=== PATIENT | male | born 1960 | race Caucasian/White ===

== ENCOUNTER 2022-01-10 23:18 | Inpatient (IN) | payer OTHER ==
[~2022-01-10] VITALS: Ht 175.3 cm; Wt 56.8 kg
[2022-01-10 23:35] LABS: BASOPHIL 0.8 % (0-2); EOSINOPHIL 0.4 % (0-5); HCT 35.6 % (42.0-52.0); HGB 12.1 g/dl (13.2-18.0); LYMPHOCYTE 10.9 % (15-48); MCV 94.2 fL (78.0-100.0); MONOCYTE 9.6 % (0-12); MPV 9.4 fL (6.0-9.5); NRBC 0; PLT 440 K/uL (150-400); RBC 3.78 M/uL (4.70-6.00); RDW 12.9 % (11.5-14.0); WBC 9.2 K/uL (4.0-10.5)
[2022-01-11] LABS: ALBUMIN 3.3 g/dL (3.4-5.0); ALKALINE PHOSHATASE 117 U/L (46-116); ALT 19 U/L (16-63); AST 33 U/L (15-37); BILIRUBIN - TOTAL 0.6 mg/dL (0.2-1.0); BUN 14 mg/dL (7-18); BUN/CREAT RATIO (CALC) 14.4 RATIO; CHLORIDE 104 mmol/L (98-107); CO2 (BICARBONATE) 22 mmol/L (21-32); CREATININE 0.97 mg/dL (0.67-1.17); GLOBULIN (CALCULATION) 3.8 g/dL; GLUCOSE 93 mg/dL (74-106); POTASSIUM 3.3 mmol/L (3.5-5.1); TOTAL PROTEIN 7.1 g/dL (6.4-8.2)
[2022-01-11 00:02] LABS: ACETAMINOPHEN (TYLENOL) < 2.0 ug/mL (10.0-30.0)
[2022-01-11 02:04] LABS: BILIRUBIN NEGATIVE (NEGATIVE); BLOOD NEGATIVE Ery/uL (NEGATIVE); CLARITY CLEAR (CLEAR); COLOR YELLOW (YELLOW); GLUCOSE (U) NORMAL (NORMAL); LEUKOCYTES NEGATIVE Leu/uL (NEGATIVE); NITRITE NEGATIVE (NEGATIVE); PROTEIN NEGATIVE (NEGATIVE); SPECIFIC GRAVITY 1.015 (1.001-1.030)
[2022-01-11 02:07] LABS: AMPHETAMINES NEGATIVE (NEGATIVE); BARBITURATES NEGATIVE (NEGATIVE); ECSTASY (MDMA) NEGATIVE (NEGATIVE); MARIJUANA (THC) NEGATIVE (NEGATIVE); METHADONE NEGATIVE (NEGATIVE); OPIATES NEGATIVE (NEGATIVE); OXYCODONE NEGATIVE (NEGATIVE)
[2022-01-11 02:11] LABS: SQUAMOUS EPITHELIAL CELLS RARE
[2022-01-11 02:42] LABS: CORONAVIRUS 2019 SARS-COV-2 NEGATIVE (NEGATIVE); INFLUENZA A NAA NEGATIVE (NEGATIVE)
--- NOTE | 2022-01-11 04:47 | NUR ---
PATIENT ARRIVED TO FLOOR VIA STRECHER, ALERT TO SELF ONLY UNABLE TO OBTAIN MOST INFO. TRIED TO CONTACT SISTER BUT NO ANSWER. BED LOCKED IN LOW POSITION CALL LIGHT IN REACH. BED ALERT ON.
[2022-01-11 06:52] LABS: RETICULOCYTE COUNT 1.3 % (1.0-2.0)
[2022-01-11 07:14] LABS: IRON % SATURATION 10.8 %SAT (20-50)
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
[2022-01-12 07:09] LABS: HCT 32.1 % (42.0-52.0); HGB 10.8 g/dl (13.2-18.0); MCH 32.2 pg (25.0-31.0); MCHC 33.6 g/dL (32.0-36.0); MCV 95.8 fL (78.0-100.0); MPV 9.8 fL (6.0-9.5); RBC 3.35 M/uL (4.70-6.00); WBC 6.2 K/uL (4.0-10.5)
[2022-01-12 07:37] LABS: BUN/CREAT RATIO (CALC) 17.3 RATIO; CREATININE 0.75 mg/dL (0.67-1.17); POTASSIUM 3.6 mmol/L (3.5-5.1)
--- NOTE | 2022-01-12 13:27 | NUR ---
PT REQUESTED INPT THERAPY WITH A [place] [facility]. CALLED [place] AND SPOKE WITH ASIM. SHE WILL HAVE SOMEONE TO CALL BACK
--- NOTE | 2022-01-12 13:37 | NUR ---
PT LIVES WITH SISTER AND DAUGHTER. PT SAYS HE NEEDS A WALKER AT HOME RE[facility]APY WITH [facility] IF UNABLE TO GET THAT WOULD LIKE TO HAVE THERAPY OUPT WITH [facility]. DOES NOT WANT WAITING FOR CALL BACK FROM ME
--- NOTE | 2022-01-12 15:08 | NUR ---
JOSUE FROM [place] CALLED THEY DO NOT HAVE INPT ACUTE REHAB.
--- NOTE | 2022-01-12 15:09 | NUR ---
CALLED [facility] PT HAS APPOINTMENT TuesdayJanuary AT 11PM THEY WILL CALL WITH [facility] IF THERE IS A CANCELLATION
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
--- NOTE | 2022-01-12 15:36 | NUR ---
IF NEED TO CONTACT [place] ACTIVE DIRECTORY ADMINISTRATOR [phone]
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
--- NOTE | 2022-01-13 12:01 | NUR ---
RADIOGRAPHER, LUCHO, ON-SITE TODAY, REPORTED CONCERNS AND SITUATION TO HER, SHE STATED THAT IF THE PATIENT IS ALERT AND ORIENTED AND DENIES MAKING ANY HOMICIDIAL THREATS HE HAS THE RIGHT TO REFUSE THE OLAP CONSULT. I SPOKE WITH THE PATIENT AND HE DENIED THE NEED FOR THE OLAP CONSULT AT THIS TIME. PATIENT AA&OX4 AT THIS TIME. PATIENTS PRIMARY MD NOTIFIED.
--- NOTE | 2022-01-13 17:26 | NUR ---
DR CHANDLER NOTIFIED BY CAMILA MANCINI THIS AM ABOUT CONSULT SHORTLY AFTER 7AM. CALL TO DR CHANDLER AT 1400 FOR UPDATE ON REFERRAL, HE LOOKED AT SCANS AND STATED THAT THE PATIENT WOULD NEED TO BE TRANSFERRED TO [facility]TH[facility] DOCTOR FOR SURGERY ON HIS PELVIS. DR ROBLEDO INFORMED, [facility] CONTACTED WHO SPOKE WITH DR ROBLEDO AND ACCEPTED PATIENT. WE ARE WAITING ON A BED TO TRANSFER PATIENT. PATIENT'S SISTER ARNAV HERE AND PER PATIENT'S REQUEST WAS UPDATED ON HIS CONDITION AND PATIENT REQUESTED HIS FRONT SHEET BE CHANGED TO REMOVE SISTER ON THERE AND ADD ARNAV. THIS WAS DONE
== END 2022-01-13 20:56 | disposition other institution (70) | DRG 91 ==
LOC: FER 23:18 → FMS 01-11 03:27
PROVIDERS: Emergency Medicine; Nurse Practitioner Acute Care; ADMIT Allergy & Immunology Allergy
PROC: HZ2ZZZZ Detoxification Services for Substance Abuse Treatment (ICD-10-PCS; principal; 2022-01-11)
DX: G92.8 Other toxic encephalopathy (principal); I63.81 Other cerebral infarction due to occlusion or stenosis of small artery; S32.19XA Other fracture of sacrum, initial encounter for closed fracture; S52.571A Other intraarticular fracture of lower end of right radius, initial encounter for closed fracture; S32.810A Multiple fractures of pelvis with stable disruption of pelvic ring, initial encounter for closed fracture; Z68.1 Body mass index [BMI] 19.9 or less, adult; N17.9 Acute kidney failure, unspecified; M50.30 Other cervical disc degeneration, unspecified cervical region; Z20.822 Contact with and (suspected) exposure to COVID-19; G80.9 Cerebral palsy, unspecified; F43.10 Post-traumatic stress disorder, unspecified; E87.6 Hypokalemia; D64.9 Anemia, unspecified; R63.6 Underweight; I12.9 Hypertensive chronic kidney disease with stage 1 through stage 4 chronic kidney disease, or unspecified chronic kidney disease; N18.2 Chronic kidney disease, stage 2 (mild); V58.9XXA Unspecified occupant of pick-up truck or van injured in noncollision transport accident in traffic accident, initial encounter; Z87.891 Personal history of nicotine dependence; Z98.890 Other specified postprocedural states; Z80.9 Family history of malignant neoplasm, unspecified; Z86.73 Personal history of transient ischemic attack (TIA), and cerebral infarction without residual deficits
CPT/HCPCS: 36415; 70450; 70551; 71045; 71250; 72125; 73100; 73522; 80048; 80053; 80305; 81001; 82140; 82607; 82728; 83540; 83550; 84443; 84484; 85025; 86140; 96372; 97166; G0480; J1630; J1650; J3411; J3475; J3486; J7030; J7120; U0002

== ENCOUNTER 2022-01-15 23:01 | Emergency (ER) | payer OTHER | END 2022-01-16 21:32 | disposition home or self-care (01) | LOC: FER 23:01 | DX: G89.18 Other acute postprocedural pain (principal); M25.552 Pain in left hip; M25.551 Pain in right hip; I10 Essential (primary) hypertension; Z86.73 Personal history of transient ischemic attack (TIA), and cerebral infarction without residual deficits; F17.200 Nicotine dependence, unspecified, uncomplicated; Z96.698 Presence of other orthopedic joint implants; Z98.890 Other specified postprocedural states | CPT/HCPCS: 72170 ==